=== PATIENT | female | born 1985 | race Caucasian/White ===

== ENCOUNTER 2020-08-26 14:41 | Emergency (ER) | payer SELFPAY ==
[2020-08-26] MEDS ORDERED: ONDANSETRON INJ 4 MG/2 ML VIAL IV ONE (16:43)
[2020-08-26] MEDS ORDERED: SODIUM CHLORIDE 0.9% (FLUSH) 10 ML SYG IV PRN (16:43)
[2020-08-26] MEDS ORDERED: KETOROLAC TROMETHAMINE INJ 30 MG/ML VIAL IV ONE (16:43)
[2020-08-26] MEDS ORDERED: SODIUM CHLORIDE 0.9% 1000ML 1,000 ML IVS ONE (16:44)
--- NOTE | 2020-08-26 16:46 | ED.PDOC ---
History of Present Illness - General Time Seen by Provider: 08/26/20 16:43 Source: patient - History of Present Illness Initial Comments: 35-year-old female who presents for chief complaint of abdominal pain. Reports sudden onset early this morning around 5 AM which awoke her from sleep, reports located to the right lower quadrant with radiation to the suprapubic region, constant, sharp, 10/10 severity at initial onset, lasted for several minutes and eased up over the next couple of hours w/o medication. She went into work and then the pain returned this afternoon, reports that it waxes and wanes, currently 5/10 severity. Does report some mild dysuria but denies any fevers, chills, nausea/vomiting/diarrhea, chest pain, cough, dyspnea, sore throat. Only prior abdominal surgeries are and tubal ligation. Allergies/Adverse Reactions: Allergies NO KNOWN ALLERGY Allergy (Verified 08/26/20 17:50) Home Medications: Ambulatory Orders Cephalexin Monohydrate [Keflex] 500 mg PO BID 5 Days #10 cap 08/26/20 Review of Systems - Review of Systems Review of Systems: 08/26/20 16:46 as per HPI All other Systems: Reviewed and Negative Family Medical History - Family History Mother Family History: No Known Physical Exam - Physical Exam General Appearance: Alert, Comfortable, No apparent distress, Obese Eye Exam: bilateral normal Ears, Nose, Throat: hearing grossly normal, normal ENT inspection, normal pharynx Neck: non-tender, full range of motion, supple, normal inspection Respiratory: lungs clear, normal breath sounds, no respiratory distress, no accessory muscle use Cardiovascular/Chest: normal peripheral pulses, regular rate, rhythm, no edema, no gallop, no JVD Peripheral Pulses: radial,right: 2+, radial,left: 2+ Gastrointestinal/Abdominal: soft, tenderness - Moderate to right lower quadrant and suprapubic region without guarding or rebound. No masses noted. 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, no motor/sensory deficits, alert, normal mood/affect, oriented x 3 Skin Exam: normal color, warm/dry Progress - Progress Progress: 08/26/20 16:46 Right lower quadrant abdominal pain -Consider UTI, acute appendicitis, kidney stone, ovarian cyst, ectopic , intrauterine , intra-abdominal abscess, uterine fibroids, ovulation pain, endometriosis, other -Patient stable, no acute distress, vitals normal, afebrile -Obtain blood work, UA, hCG -Place PIV, 1 L normal saline bolus, Toradol 30 mg IV, Zofran 4 mg IV 08/26/20 19:13 -UA is consistent with UTI with white blood cells, positive nitrites, 3+ bacteria. Blood work is largely unremarkable. Patient reports pain is much improved, well controlled. She remained stable. -Discussed diagnosis of UTI with patient as well as treatment plan. Will give Keflex 500 mg p.o. twice daily for 5 days, first dose here. -Discharged home in good condition, return warnings discussed. Joao Graves MD Billing #[id number] 08/26/20 16:43 Sodium Chloride 0.9% (Flush) [Saline Flush Syringe] 10 ml IV PRN PRN 08/26/20 18:27 URINE CULTURE W/COLONY COUNT Stat Laboratory Results - last 24 hr 08/26/20 08/26/20 08/26/20 16:50 16:50 16:50 WBC 7.9 RBC 4.78 Hgb 14.2 Hct 41.5 MCV 86.8 MCH 29.6 MCHC 34.1 RDW 13.7 Plt Count 266 MPV 8.1 Absolute Neuts (auto) 5.50 Absolute Lymphs (auto) 1.80 Absolute Monos (auto) 0.40 Absolute Eos (auto) 0.20 Absolute Basos (auto) 0.00 Neutrophils % 70.0 Lymphocytes % 22.1 Monocytes % 5.2 Eosinophils % 2.2 Basophils % 0.5 Sodium 138 Potassium 3.9 Chloride 104 Carbon Dioxide 25 Anion Gap 12.9 BUN 13 Creatinine 0.69 BUN/Creatinine Ratio 18.8 Random Glucose 92 Serum Osmolality 275.4 Calcium 8.6 Total Bilirubin 0.7 Direct Bilirubin 0.1 Indirect Bilirubin 0.6 AST 21 ALT 22 Alkaline Phosphatase 62 Serum Total Protein 7.4 Albumin 4.2 Amylase 33 Lipase 25 Serum HCG, Qual Negative Urine Color Urine Appearance Urine pH Ur Specific Wann Urine Protein Urine Glucose (UA) Urine Ketones Urine Blood Urine Nitrite Urine Bilirubin Urine Urobilinogen Ur Leukocyte Esterase Urine RBC Urine WBC Ur Epithelial Cells Urine Bacteria 08/26/20 18:27 WBC RBC Hgb Hct MCV MCH MCHC RDW Plt Count MPV Absolute Neuts (auto) Absolute Lymphs (auto) Absolute Monos (auto) Absolute Eos (auto) Absolute Basos (auto) Neutrophils % Lymphocytes % Monocytes % Eosinophils % Basophils % Sodium Potassium Chloride Carbon Dioxide Anion Gap BUN Creatinine BUN/Creatinine Ratio Random Glucose Serum Osmolality Calcium Total Bilirubin Direct Bilirubin Indirect Bilirubin AST ALT Alkaline Phosphatase Serum Total Protein Albumin Amylase Lipase Serum HCG, Qual Urine Color Yellow Urine Appearance Sl cloudy Urine pH 6.0 Ur Specific Wann > 1.030 H Urine Protein Negative Urine Glucose (UA) Negative Urine Ketones Negative Urine Blood Trace-lysed H Urine Nitrite Positive H Urine Bilirubin Negative Urine Urobilinogen 0.2 Ur Leukocyte Esterase Negative Urine RBC 1-3 Urine WBC 3-5 H Ur Epithelial Cells 5-10 Urine Bacteria 3+ H Departure - Departure Clinical Impression: UTI (urinary tract infection) Qualifiers: Urinary tract infection type: acute cystitis Hematuria presence: without hematuria Qualified Code(s): N30.00 - Acute cystitis without hematuria Time of Disposition: 19:11 Disposition: Discharge to Home or Self Care Condition: Good Instructions: Urinary Tract Infection, Adult (DC) Diet: resume usual diet Activity: increase activity as tolerated Referrals: Jh Valdes MD [Primary Care Provider] - 1-2 Weeks Prescriptions: Cephalexin Monohydrate [Keflex] 500 mg PO BID 5 Days #10 cap Home Medications: Ambulatory Orders Cephalexin Monohydrate [Keflex] 500 mg PO BID 5 Days #10 cap 08/26/20 Additional Instructions: Take the antibiotics as directed and finish the full course. Remain well- hydrated and advance your diet and activity level as tolerated. Continue to take [id number] medications as needed for pain such as Tylenol 650 mg every 6 hours as needed and ibuprofen 600 mg every 6 hours as needed. Return to the ED if you develop worsening abdominal pain, abdominal pain with fevers, large blood in the urine, etc. Otherwise follow-up with your primary care doctor as scheduled or sooner as needed.
[2020-08-26] MEDS ORDERED: CEPHALEXIN MONOHYDRATE 250 MG CAP PO ONE (19:02)
[2020-08-26 19:28] VITALS: BP 134/78; TEMP 97.8; O2SAT 99
== END 2020-08-26 19:28 | disposition home or self-care (01) ==
LOC: ER 14:41
DX: N30.00 Acute cystitis without hematuria (principal)
CPT/HCPCS: 36415; 80048; 80076; 81001; 82150; 83690; 84703; 85025; 87086; 87088; 87186; J1885; J2405; J7030